=== PATIENT | female | born 1940 | race Caucasian/White ===

== ENCOUNTER 2017-05-04 13:29 | Inpatient (IN) | payer MEDICARE, OTHER ==
[~2017-05-04] VITALS: Ht 167.6 cm; Wt 56.7 kg
[2017-05-04 14:02] LABS: BASOPHILS % (AUTO) 0.7 % (0.0-2.0); EOSINOPHILS % (AUTO) 0.8 % (0.0-7.0); HEMATOCRIT 28.1 % (31.2-41.9); LYMPHOCYTES # (AUTO) 0.5 K/uL (20.0-40.0); LYMPHOCYTES % (AUTO) 11.9 % (20.5-51.5); MEAN CORPUSCULAR HEMOGLOBIN 26.2 uug (24.7-32.8); MEAN CORPUSCULAR HGB CONC 32 g/dL (32.3-35.6); MEAN CORPUSCULAR VOLUME 81.3 fL (75.5-95.3); MONOCYTES # (AUTO) 0.3 K/uL (2.0-10.0); MONOCYTES % (AUTO) 7.2 % (0.0-11.0); NEUTROPHILS # (AUTO) 3.5 K/uL (1.8-8.9); NEUTROPHILS % (AUTO) 79.4 % (38.5-71.5); PLATELET COUNT (AUTO) 173 K/uL (179-408); RED BLOOD CELL COUNT(AUTO) 3.46 MIL/uL (3.63-4.92); WHITE BLOOD COUNT (AUTO) 4.5 K/uL (3.8-11.8)
[2017-05-04 14:08] LABS: CARBON DIOXIDE 27 mmol/L (21-32); CHLORIDE 111 mmol/L (98-107); CREATININE 1.2 mg/dL (0.6-1.3); GLUCOSE 77 mg/dL (74-106); POTASSIUM 5.4 mmol/L (3.5-5.1); UREA NITROGEN, BLOOD 30 mg/dL (7-18)
[2017-05-04 14:14] LABS: ACETAMINOPHEN < 2.0 ug/mL (10-30); ALANINE AMINOTRANSFERASE 13 U/L (14-59); ALKALINE PHOSPHATASE 62 U/L (50-136); ASPARTATE AMINOTRANSFERASE 23 U/L (15-37); BILIRUBIN,DIRECT 0.1 mg/dL (0.0-0.2); BILIRUBIN,TOTAL 0.2 mg/dL (0.2-1.0); TOTAL PROTEIN, SERUM 7.7 g/dL (6.4-8.2)
[2017-05-04 14:18] LABS: ETHANOL < 3 MG/DL (0-0)
--- NOTE | 2017-05-04 14:40 | NUR ---
pt medically cleared .pt will be transfered to mhu when the bed is ready
[2017-05-04] MEDS ORDERED: FUROSEMIDE 20 MG TABLET PO ONE (15:00)
--- NOTE | 2017-05-04 15:15 | NUR ---
pt transfered to u. dann had hospital lunch tray. finished it with good appetite.
[2017-05-04] MEDS ORDERED: FUROSEMIDE 20 MG TABLET ONE (15:18)
[2017-05-04] MEDS ORDERED: ACETAMINOPHEN 325 MG TABLET PO PRN (16:00)
[2017-05-04] MEDS ORDERED: MAG HYDROX/AL HYDROX/SIMETH 30 ML LIQUID UDC PO PRN (16:00)
[2017-05-04] MEDS ORDERED: MAGNESIUM HYDROXIDE 30 ML LIQUID UDC PO PRN (16:00)
[2017-05-04 17:31] VITALS: BP 132/63
--- NOTE | 2017-05-04 17:33 | NUR ---
1530 Admitted patient to MHU ,placed on 5150 for gravely disabled and danger to self.Patient confused ,wandering around , refusing to eat and been aggressive to the son. Also son reported that patient been defecating and urinating on herself , unable to plan for her care. On admission, patient unable to answer questions, very confused , disoriented and combative. Patient incontinent of bowel movement and urine, assisted for shower and became combative . It takes 3 person to help her shower. 1554 Dr. Nigel Aburto and [facility] doctor notified by charge nurse about the admission with orders from Psychiatrist.
[2017-05-04 19:46] VITALS: BP 139/78
[2017-05-04] MEDS: LORAZEPAM 0.5 MG TABLET PO PRN (20:23)
--- NOTE | 2017-05-04 21:00 | NUR ---
Received patient in the day room. She is A/O x 1 in no distress. Pt able to ambulated with steady gait. Patient is on 1:1 supervision for safety . She was noted confused, hyperverbal, flight of ideas. She was noted wondering in the hallway anxious. Ativan 0.5mg PO PRN was given for agitation. will continue to monitor
[2017-05-05 07:30] VITALS: BP 133/71
[2017-05-05] MEDS: LORAZEPAM 0.5 MG TABLET PO PRN ×2 (11:06→17:24)
[2017-05-05] MEDS: DONEPEZIL 10 MG TABLET PO SCH (11:08)
--- NOTE | 2017-05-05 13:14 | NUR ---
UR Note: Spoke with Vicky in [employer] ([phone]). Informed that assigned Rouge Miller is Dai and she will contact this telegraphic typewriter mechanic for follow-up and authorization. SW will follow-up.
[2017-05-05 15:00] VITALS: BP 130/88
--- NOTE | 2017-05-05 15:01 | NUR ---
Initial Discharge Instructions: Pt currently lives at home with her youngest son [[address] [place] [id number]; [phone]]. Spoke with pt's son/DPDAVON Lawrence ([phone]) who is unsure if it would be appropriate for pt to return home. SW will speak with pt, family, and MD regarding proper discharge plans. SW will form a safe and appropriate discharge plan.
--- NOTE | 2017-05-05 15:04 | NUR ---
Firearms Report: Telecom Billing Analyst completed and submitted [employer] Firearms Report on 05/05/17.
--- NOTE | 2017-05-05 15:16 | NUR ---
Remains on 1:1 Nursing supervision for safety, Adryan Rodriguez DNP. in to see pt. was informed of elevate WBC of 16.1, as well as patient had loose stools twice per sitter.
[2017-05-05 17:57] LABS: IRON, SERUM 37 ug/dL (50-175)
[2017-05-05 18:25] LABS: FERRITIN 337 ng/mL (8-252)
[2017-05-05 20:02] VITALS: BP 119/66
[2017-05-05] MEDS: QUETIAPINE FUMARATE 25 MG TABLET PO SCH (20:17)
--- NOTE | 2017-05-06 06:46 | NUR ---
GPS: REMAIN ON 1:1 SITTER FOR NURSING SUPERVISION. REMAIN CALM AND COOPERATIVE WITH CARE. AND MEDICATIONS. SLEPT 08:25 HRS THROUGH THE NIGHT.CONTINUE MONITORING FOR SAFETY.
[2017-05-06 07:27] LABS: BASOPHILS % (AUTO) 0.5 % (0.0-2.0); EOSINOPHILS # (AUTO) 0.2 K/uL (0.0-0.7); EOSINOPHILS % (AUTO) 4.6 % (0.0-7.0); HEMATOCRIT 29.3 % (31.2-41.9); HEMOGLOBIN 9.6 g/dL (10.9-14.3); LYMPHOCYTES # (AUTO) 1.1 K/uL (20.0-40.0); LYMPHOCYTES % (AUTO) 26.8 % (20.5-51.5); MEAN CORPUSCULAR HEMOGLOBIN 26.3 uug (24.7-32.8); MEAN CORPUSCULAR HGB CONC 33 g/dL (32.3-35.6); MEAN CORPUSCULAR VOLUME 80.4 fL (75.5-95.3); MONOCYTES # (AUTO) 0.4 K/uL (2.0-10.0); MONOCYTES % (AUTO) 8.2 % (0.0-11.0); NEUTROPHILS # (AUTO) 2.6 K/uL (1.8-8.9); NEUTROPHILS % (AUTO) 59.9 % (38.5-71.5); PLATELET COUNT (AUTO) 174 K/uL (179-408); RED BLOOD CELL COUNT(AUTO) 3.65 MIL/uL (3.63-4.92); WHITE BLOOD COUNT (AUTO) 4.3 K/uL (3.8-11.8)
[2017-05-06 07:30] VITALS: BP 138/74
[2017-05-06 07:37] LABS: ALANINE AMINOTRANSFERASE 15 U/L (14-59); ALKALINE PHOSPHATASE 58 U/L (50-136); ASPARTATE AMINOTRANSFERASE 29 U/L (15-37); BILIRUBIN,TOTAL 0.3 mg/dL (0.2-1.0); CARBON DIOXIDE 29 mmol/L (21-32); CHLORIDE 109 mmol/L (98-107); CREATININE 1.3 mg/dL (0.6-1.3); GLUCOSE 83 mg/dL (74-106); MAGNESIUM 1.7 mg/dL (1.8-2.4); PHOSPHOROUS 4.6 mg/dL (2.5-4.9); POTASSIUM 4.6 mmol/L (3.5-5.1); TOTAL PROTEIN, SERUM 7.7 g/dL (6.4-8.2); UREA NITROGEN, BLOOD 31 mg/dL (7-18)
[2017-05-06] MEDS: DONEPEZIL 10 MG TABLET PO SCH (09:00)
[2017-05-06] MEDS ORDERED: MAGNESIUM OXIDE 400 MG TABLET PO ONE (13:30)
[2017-05-06 15:00] VITALS: BP 143/74
[2017-05-06] MEDS: CYANOCOBALAMIN 1000 MCG/ML VIAL IM SCH (18:14)
[2017-05-06 20:00] VITALS: BP 130/75
[2017-05-06] MEDS: QUETIAPINE FUMARATE 25 MG TABLET PO SCH (20:05)
[2017-05-06] MEDS: ZOLPIDEM 5 MG TABLET PO PRN (22:13)
[2017-05-07 07:30] VITALS: BP 114/66
[2017-05-07] MEDS: CYANOCOBALAMIN 1000 MCG/ML VIAL IM SCH (08:30)
[2017-05-07] MEDS: QUETIAPINE FUMARATE 25 MG TABLET PO SCH ×2 (08:30→20:26)
[2017-05-07] MEDS: DONEPEZIL 10 MG TABLET PO SCH (08:30)
[2017-05-07 09:06] LABS: CORTISOL 13.2 ug/dL (.)
[2017-05-07] MEDS: LORAZEPAM 0.5 MG TABLET PO PRN (09:58)
[2017-05-07 15:00] VITALS: BP 109/75
[2017-05-07 19:30] VITALS: BP 115/72
--- NOTE | 2017-05-07 22:08 | NUR ---
PATIENT CONFUSED, DISORGANIZED, DISORIENTED. PATIENT REMAINS WITH A 1:1 SITTER FOR SAFETY. PATIENT HAS POOR IMPULSE CONTROL, POOR JUDGEMENT, AND POOR INSIGHT TO HER CONDITION. PATIENT REQUIRES CONSTANT PROMPTING, AND REDIRECTION. PATIENT HAS BEEN COMPLAINT WITH MEDICATION, HOWEVER BECOMES COMBATIVE DURING PATIENT CARE. BED IN LOWEST POSITION, BED LOCKED, AND BED ALARM ON WHILE IN BED. PATIENT IN NO APPARENT DISTRESS WILL CONTINUE TO MONITOR. NO AGGRESSIVE OR COMBATIVE BEHAVIOR WILL CONTINUE TO MONITOR
[2017-05-07] MEDS: ZOLPIDEM 5 MG TABLET PO PRN (22:47)
[2017-05-08 06:39] LABS: BASOPHILS % (AUTO) 0.8 % (0.0-2.0); EOSINOPHILS # (AUTO) 0.2 K/uL (0.0-0.7); EOSINOPHILS % (AUTO) 4.8 % (0.0-7.0); HEMATOCRIT 28.1 % (31.2-41.9); HEMOGLOBIN 9.1 g/dL (10.9-14.3); LYMPHOCYTES # (AUTO) 1.2 K/uL (20.0-40.0); LYMPHOCYTES % (AUTO) 23.5 % (20.5-51.5); MEAN CORPUSCULAR HEMOGLOBIN 26.3 uug (24.7-32.8); MEAN CORPUSCULAR HGB CONC 33 g/dL (32.3-35.6); MEAN CORPUSCULAR VOLUME 80.8 fL (75.5-95.3); MONOCYTES # (AUTO) 0.4 K/uL (2.0-10.0); MONOCYTES % (AUTO) 8.7 % (0.0-11.0); NEUTROPHILS # (AUTO) 3.1 K/uL (1.8-8.9); NEUTROPHILS % (AUTO) 62.2 % (38.5-71.5); PLATELET COUNT (AUTO) 163 K/uL (179-408); RED BLOOD CELL COUNT(AUTO) 3.48 MIL/uL (3.63-4.92)
[2017-05-08 07:03] LABS: ALANINE AMINOTRANSFERASE 13 U/L (14-59); ALKALINE PHOSPHATASE 52 U/L (50-136); ASPARTATE AMINOTRANSFERASE 30 U/L (15-37); BILIRUBIN,TOTAL 0.2 mg/dL (0.2-1.0); CARBON DIOXIDE 27 mmol/L (21-32); CHLORIDE 109 mmol/L (98-107); CREATININE 1.6 mg/dL (0.6-1.3); GLUCOSE 86 mg/dL (74-106); MAGNESIUM 2.2 mg/dL (1.8-2.4); PHOSPHOROUS 3.4 mg/dL (2.5-4.9); POTASSIUM 5.2 mmol/L (3.5-5.1); TOTAL PROTEIN, SERUM 7.3 g/dL (6.4-8.2); UREA NITROGEN, BLOOD 47 mg/dL (7-18)
[2017-05-08 07:30] VITALS: BP 122/79
[2017-05-08] MEDS: CYANOCOBALAMIN 1000 MCG/ML VIAL IM SCH (08:07)
[2017-05-08] MEDS: DONEPEZIL 10 MG TABLET PO SCH (08:07)
[2017-05-08] MEDS: QUETIAPINE FUMARATE 25 MG TABLET PO SCH ×3 (08:07→20:13)
--- NOTE | 2017-05-08 08:39 | NUR ---
UR Note: Spoke with Renate at [facility] [employer] ([phone]). Per Renate, pillowcase sewer assigned (Dai) will call this automobile service writer back with authorization information. SW will follow-up.
--- NOTE | 2017-05-08 09:23 | NUR ---
UR Note: Received call from Yasir at [employer] ([phone]). Per Yasir, urology surgeon Animal Handler for pt is Dai Chatman. He stated that he will be reaching out to as well to call this travel writer. SW will follow-up.
--- NOTE | 2017-05-08 10:30 | NUR ---
UR Note: Received call from [employer] Sorter Dai ([phone]). Authorization #:[id number]. Community Engagement Coordinator will follow-up.
--- NOTE | 2017-05-08 10:54 | NUR ---
UR: Spoke with Dai GONZALEZ Tin Assorter at [facility]([phone]). Wants clinicals faxed every-other day ([phone]). AUTH#: [id number]. SW will follow-up.
[2017-05-08] MEDS ORDERED: LOPERAMIDE HCL 2 MG CAPSULE PO PRN (12:00)
[2017-05-08] MEDS: LORAZEPAM 0.5 MG TABLET PO PRN (14:17)
[2017-05-08 16:57] VITALS: BP 109/70
[2017-05-08 21:27] VITALS: BP 113/75
--- NOTE | 2017-05-09 06:03 | NUR ---
GPS: PATIENT REMAIN ON 1:1 SITTER FOR NURSING SUPERVISION. REMAIN CALM AND COOPERATIVE WITH CARE. AND MEDICATIONS. NO AGITATION NOTED.SLEPT 7 HRS THROUGH THE NIGHT. ASSISTED WITH ADL'S. CONTINUE MONITORING FOR SAFETY.
[2017-05-09 07:30] VITALS: BP 139/93
[2017-05-09] MEDS: QUETIAPINE FUMARATE 25 MG TABLET PO SCH ×3 (09:40→20:34)
[2017-05-09] MEDS: DONEPEZIL 10 MG TABLET PO SCH (09:40)
[2017-05-09] MEDS: CYANOCOBALAMIN 1000 MCG/ML VIAL IM SCH (09:40)
[2017-05-09] MEDS: LORAZEPAM 0.5 MG TABLET PO PRN (10:45)
--- NOTE | 2017-05-09 10:45 | NUR ---
Pt confused, yelling and attempting to hit her sitter 1:1. decreased environmental stimuli and offered distraction both non effective. Ativan given. Will continue to monitor pt.
--- NOTE | 2017-05-09 11:45 | NUR ---
Pt is more calm. ativan effective.
[2017-05-09 16:45] VITALS: BP 129/78
--- NOTE | 2017-05-09 18:00 | NUR ---
Pt compliant on taking her medications But pt continues to fight and be aggressive to 1:1 sitter during bathing. Spoke with nasreen re: redness on buttocks due to incontinence urine - z guard ordered. noted no diarrhea this shift.
[2017-05-09 20:17] VITALS: BP 119/70
[2017-05-09] MEDS: Z GUARD REMEDY PASTE 57 GM TUBE TOP SCH (20:37)
[2017-05-09] MEDS: ZOLPIDEM 5 MG TABLET PO PRN (22:09)
--- NOTE | 2017-05-09 23:30 | NUR ---
RECEIVED PATIENT SITTING IN A MÓNICA CHAIR IN THE MAIN HALLWAY. SHE CONTINUE ON 1:1 SUPERVISION FOR PRECAUTION. SHE IS A/O X 1. CONFUSE, LABILE MOOD, ELATED. HOWEVER, NO AGGRESSIVE, COMBATIVE BX NOTED AT THIS TIME. SHE IS COMPLIANT WITH MEDICATION REGIMENT AT THIS TIME. SHE REFUSED TO USE THE TOILET AT THIS TIME. WILL CONTINUE TO ATTEMPT TO COLLECT URINE AND STOOL SAMPLES. NO DIARRHEA/ LOOSE STOOLE NOTED AT THIS TIME. AMBIEN 5MG PO PRN FOR INSOMNIA WAS GIVEN AT 2210. EFFECTIVE, PT IS ASLEEP. WILL CONTINUE TO MONITOR.
--- NOTE | 2017-05-10 07:01 | NUR ---
patient slept for approx 6.15 hrs through the night. she had a shower this morning
[2017-05-10 07:30] VITALS: BP 122/69
[2017-05-10 08:24] LABS: BASOPHILS % (AUTO) 0.2 % (0.0-2.0); EOSINOPHILS # (AUTO) 0.2 K/uL (0.0-0.7); HEMATOCRIT 28.7 % (31.2-41.9); HEMOGLOBIN 9.2 g/dL (10.9-14.3); LYMPHOCYTES # (AUTO) 0.9 K/uL (20.0-40.0); LYMPHOCYTES % (AUTO) 17.9 % (20.5-51.5); MEAN CORPUSCULAR HEMOGLOBIN 26.2 uug (24.7-32.8); MEAN CORPUSCULAR HGB CONC 32 g/dL (32.3-35.6); MEAN CORPUSCULAR VOLUME 82.1 fL (75.5-95.3); MONOCYTES # (AUTO) 0.3 K/uL (2.0-10.0); MONOCYTES % (AUTO) 5.9 % (0.0-11.0); NEUTROPHILS # (AUTO) 3.8 K/uL (1.8-8.9); PLATELET COUNT (AUTO) 171 K/uL (179-408); WHITE BLOOD COUNT (AUTO) 5.2 K/uL (3.8-11.8)
[2017-05-10 09:42] LABS: CARBON DIOXIDE 28 mmol/L (21-32); CHLORIDE 107 mmol/L (98-107); CREATININE 1.5 mg/dL (0.6-1.3); GLUCOSE 125 mg/dL (74-106); MAGNESIUM 2.2 mg/dL (1.8-2.4); PHOSPHOROUS 3.1 mg/dL (2.5-4.9); POTASSIUM 4.2 mmol/L (3.5-5.1); UREA NITROGEN, BLOOD 38 mg/dL (7-18)
[2017-05-10] MEDS: QUETIAPINE FUMARATE 25 MG TABLET PO SCH ×3 (09:56→20:09)
[2017-05-10] MEDS: DONEPEZIL 10 MG TABLET PO SCH (09:56)
[2017-05-10] MEDS: CYANOCOBALAMIN 1000 MCG/ML VIAL IM SCH (09:57)
[2017-05-10] MEDS: Z GUARD REMEDY PASTE 57 GM TUBE TOP SCH ×2 (09:57→21:00)
[2017-05-10 09:58] LABS: *BILIRUBIN,URIN NEGATIVE (NEGATIVE); *BLOOD, URINE Trace-intact (NEGATIVE); *CLARITY,URINE CLEAR (CLEAR); *COLOR,URINE LIGHT YELLOW (YELLOW); *KETONES,URINE NEGATIVE (NEGATIVE); *PROTEIN,URINE 2+ (NEGATIVE); *UROBILINOGEN,URINE 0.2 E.U./dl (NORMAL); LEUKOCYTE ESTERASE ,URINE NEGATIVE (NEGATIVE); NITRITE, URINE NEGATIVE (NEGATIVE); UGLUCOSE NEGATIVE (NEGATIVE)
[2017-05-10 10:27] LABS: BACTERIA,URINE NONE SEEN /HPF (NONE SEEN); SQUAMOUS EPITHELIAL CELL,UR FEW /HPF (NONE SEEN); WBC,URINE 0-3 /HPF (0-3)
[2017-05-10 12:32] LABS: *URINE TOTAL PROTEIN RANDOM 54.6 mg/dL (<150/24HR)
[2017-05-10 12:37] LABS: IRON, SERUM 20 ug/dL (50-175)
[2017-05-10 16:00] VITALS: BP 124/78
[2017-05-10 18:28] LABS: *OCCULT BLOOD STOOL NEGATIVE (NEGATIVE)
[2017-05-10] MEDS: LORAZEPAM 0.5 MG TABLET PO PRN (19:44)
[2017-05-10 20:32] VITALS: BP 110/72
--- NOTE | 2017-05-10 20:54 | NUR ---
received patient walking in the main hallway. she is A/O x 1 confused, wondering, poor insight and disoriented. She continue on one two one supervision for safety. She was noted easily irritable, combative, wondering in the main hallway. Ativan 0.5mg PO PRN was given for agitation at approx 1944. Pt is compliant with medication regiment at this time. will continue to monitor.
[2017-05-11 04:06] LABS: VIT D, 25-HYDROXY 19.8 ng/mL (30.0-100.0)
--- NOTE | 2017-05-11 06:50 | NUR ---
PT SLEPT FOR APPROX 7.00HRS THROUGH THE NIGHT. PATIENT WAS COMPLIANT WITH ADL THIS MORNING. SHE CONTINUE ON 1:1 SUPERVISION.
[2017-05-11 07:30] VITALS: BP 114/76
[2017-05-11 07:56] LABS: BASOPHILS % (AUTO) 0.7 % (0.0-2.0); EOSINOPHILS # (AUTO) 0.2 K/uL (0.0-0.7); EOSINOPHILS % (AUTO) 3.7 % (0.0-7.0); HEMATOCRIT 28.5 % (31.2-41.9); LYMPHOCYTES % (AUTO) 17.9 % (20.5-51.5); MEAN CORPUSCULAR HEMOGLOBIN 25.9 uug (24.7-32.8); MEAN CORPUSCULAR HGB CONC 32 g/dL (32.3-35.6); MEAN CORPUSCULAR VOLUME 81.7 fL (75.5-95.3); MONOCYTES # (AUTO) 0.5 K/uL (2.0-10.0); MONOCYTES % (AUTO) 8.9 % (0.0-11.0); NEUTROPHILS # (AUTO) 3.7 K/uL (1.8-8.9); NEUTROPHILS % (AUTO) 68.8 % (38.5-71.5); PLATELET COUNT (AUTO) 167 K/uL (179-408); RED BLOOD CELL COUNT(AUTO) 3.49 MIL/uL (3.63-4.92); WHITE BLOOD COUNT (AUTO) 5.3 K/uL (3.8-11.8)
[2017-05-11] MEDS: QUETIAPINE FUMARATE 25 MG TABLET PO SCH ×3 (08:41→20:08)
[2017-05-11] MEDS: Z GUARD REMEDY PASTE 57 GM TUBE TOP SCH ×2 (08:41→20:08)
[2017-05-11] MEDS: DONEPEZIL 10 MG TABLET PO SCH (08:41)
[2017-05-11 08:48] LABS: ALANINE AMINOTRANSFERASE 13 U/L (14-59); ALKALINE PHOSPHATASE 56 U/L (50-136); ASPARTATE AMINOTRANSFERASE 28 U/L (15-37); BILIRUBIN,TOTAL 0.2 mg/dL (0.2-1.0); CARBON DIOXIDE 28 mmol/L (21-32); CHLORIDE 109 mmol/L (98-107); CREATININE 1.4 mg/dL (0.6-1.3); GLUCOSE 68 mg/dL (74-106); MAGNESIUM 2.2 mg/dL (1.8-2.4); POTASSIUM 4.6 mmol/L (3.5-5.1); TOTAL PROTEIN, SERUM 7.6 g/dL (6.4-8.2); UREA NITROGEN, BLOOD 42 mg/dL (7-18)
[2017-05-11 09:07] LABS: ALDOSTERONE <1.0 ng/dL (0.0-30.0)
[2017-05-11 10:07] LABS: RENIN 0.408 ng/mL/hr (0.167-5.380)
[2017-05-11] MEDS: CHOLECALCIFEROL 1,000 UNIT TABLET PO SCH (11:00)
[2017-05-11 15:45] VITALS: BP 121/85
[2017-05-11 19:50] VITALS: BP 112/85
[2017-05-11] MEDS: ZOLPIDEM 5 MG TABLET PO PRN (22:03)
[2017-05-12 07:30] VITALS: BP 103/68
--- NOTE | 2017-05-12 08:09 | NUR ---
DC Note: Patient will be discharged home with family [[address] [place] [address]; [phone]] via private transportation at 1pm. LISA spoke with patient's son Howard [[phone]] who stated he will be picking up patient. Patient's son is aware of discharge plans. Patient will follow up with her event technician Dr. Kruger [[phone]]. LISA spoke with LISA Lala at [facility] who provided a referral for psychiatrist Dr. Gulshan Moralez [[address] [place] [address]. [place], [place]; [phone]]. Dai will follow up with an appointment time. Patient was also referred to P[facility] [ ]. ]. Patient was provided with additional outpatient mental health resources to [facility] , Joan Ayala , and the National Suicide Prevention Lifeline .
[2017-05-12] MEDS: QUETIAPINE FUMARATE 25 MG TABLET PO SCH (08:20)
[2017-05-12] MEDS: CHOLECALCIFEROL 1,000 UNIT TABLET PO SCH (08:20)
[2017-05-12] MEDS: DONEPEZIL 10 MG TABLET PO SCH (08:20)
[2017-05-12] MEDS: Z GUARD REMEDY PASTE 57 GM TUBE TOP SCH (08:25)
--- NOTE | 2017-05-12 12:50 | NUR ---
1230 Patient discharged instruction give to the son, Howard (DPOA) regarding patient's medications to continue at home and prescription given - son verbalized understanding and signed D/C papers. All clothes returned and signed. 1300 Discharged home with son via private car, stable condition.
== END 2017-05-12 13:00 | disposition home or self-care (01) | DRG 885 ==
LOC: ER 13:30 → GPS 15:03
PROVIDERS: ADMIT Psychiatry & Neurology Psychiatry; ATTEND Nurse Practitioner Acute Care
DX: F23 Brief psychotic disorder (principal); E43 Unspecified severe protein-calorie malnutrition; N17.0 Acute kidney failure with tubular necrosis; N18.9 Chronic kidney disease, unspecified; F03.91 Unspecified dementia, unspecified severity, with behavioral disturbance; D69.6 Thrombocytopenia, unspecified; E87.5 Hyperkalemia; E83.42 Hypomagnesemia; Z91.83 Wandering in diseases classified elsewhere; Z68.20 Body mass index [BMI] 20.0-20.9, adult; E53.8 Deficiency of other specified B group vitamins; E78.5 Hyperlipidemia, unspecified; E55.9 Vitamin D deficiency, unspecified; N28.1 Cyst of kidney, acquired; D50.9 Iron deficiency anemia, unspecified
CPT/HCPCS: 36415; 71010; 76770; 82088; 82306; 82533; 82652; 83550; 83735; 83970; 84100; 84156; 84244; 84300; 85025; 93005; A4663; G0480; G0480-TC; J3420